=== PATIENT | male | born 1965 | race Caucasian/White ===

== ENCOUNTER → 2020-05-04 | Outpatient (CLI) | payer OTHER ==
--- NOTE | 2020-05-04 10:56 | 2DMMODE ---
[facility] [place] [address] 2 D/M-MODE ECHOCARDIOGRAM Name: CASSIDY,SHELDON NICOLE Room #: REG [facility] Artemio#: [id number] Admission: 05/04/20 Attend Phys: Physician not on staff Discharge: Date of : 67 Report #: [id number] THIS REPORT FOR: cc: Physician not on staff Physician not on staff Pascual Lord MD [facility] ~ APPROVED REPORT Study performed: 05/04/2020 09:56:55 EXAM: Comprehensive 2D, Doppler, and color-flow Echocardiogram Patient Location: Echo lab Room #: 2 Status: routine BSA: 2.04 HR: 78 bpm BP: 134/78 mmHg Rhythm: NSR Other Information Study Quality: Good Indications Hypertensive Disorder. 2D Dimensions RVDd: 37.66 mm IVSd: 10.40 (7-11mm) LVOT Diam: 23.07 (18-24mm) LVDd: 52.37 mm PWd: 6.86 (7-11mm) Ascending Ao: 33.25 (22-36mm) LVDs: 38.81 (25-40mm) Aortic Root: 39.75 mm Volumes Left Atrial Volume (Systole) Single Plane 4CH: 26.87 mL Single Plane 2CH: 53.72 mL LA ESV Index: 21.00 mL/m2 Aortic Valve AoV Peak Devin.: 1.32 m/s AO Peak Gr.: 6.93 mmHg LVOT Max P.96 mmHg LVOT Max V: 0.86 m/s VINAY Vmax: 2.73 cm2 [facility] [address] [place] [address] 2 D/M-MODE ECHOCARDIOGRAM Name: SHELDON BENJAMIN Room #: REG CL Evelina.#: [id number] Admission: 05/04/20 Attend Phys: Physician not on s Discharge: Date of : 67 Report #: [id number] Mitral Valve E/A Ratio: 0.8 MV Decel. Time: 323.24 ms MV E Max Devin.: 0.46 m/s MV A Devin.: 0.56 m/s MV PHT: 93.74 ms IVRT: 115.34 ms Pulmonary Valve PV Peak Devin.: 1.05 m/s PV Peak Gr.: 4.37 mmHg Pulmonary Vein P Vein S: 0.81 m/s P Vein A: 0.29 m/s P Vein D: 0.37 m/s P Vein A Dur.: 120.0 msec P Vein S/D Ratio: 2.19 Tricuspid Valve TR Peak Devin.: 2.13 m/s RAP Estimate: 5.00 mmHg TR Peak Gr.: 18.12 mmHg PA Pressure: 23.00 mmHg Left Ventricle The left ventricle is normal size. There is normal LV segmental wall motion. There is normal left ventricular wall thickness. The left ventricular systolic function is normal. LVEF is 50-55%. Mild diastolic dysfunction is present (impaired relaxation pattern). Right Ventricle The right ventricle is normal size. The right ventricular systolic function is normal. Atria The left atrium size is normal. The right atrium size is normal. Aortic Valve The aortic valve is normal in structure. Mild aortic regurgitation. There is no aortic valvular stenosis. Mitral Valve The mitral valve is normal in structure. There is no mitral valve regurgitation noted. No evidence of mitral valve stenosis. Tricuspid Valve The tricuspid valve is normal in structure. Trace tricuspid [facility] [address] [place] [place] [address] 2 D/M-MODE ECHOCARDIOGRAM Name: SHELDON BENJAMIN Room #: REG CL [facility]#: [id number] Admission: 05/04/20 Attend Phys: Physician not on s Discharge: Date of : 67 Report #: [id number] regurgitation. Estimated PAP 20-25mmHg. Pulmonic Valve The pulmonary valve is normal in structure. There is no pulmonic valvular regurgitation. Great Vessels Aortic root is dilated at 4.0cm. The ascending aorta is normal in size. IVC is normal in size and collapses >50% with inspiration. Pericardium There is no pericardial effusion. <Conclusion> Normal left ventricle size and wall thickness Ejection fraction 55% Grade 1 diastolic function Normal atrial size Normal right ventricular size and function Mild aortic valve insufficiency Trace of tricuspid valve insufficiency Pulmonary artery systolic pressure estimated at 25 mmHg Mild aortic root enlargement estimated at 4.0 cm No pericardial effusion <ELECTRONICALLY SIGNED> By: Pascual Lord MD, FACC 05/04/201054 [id number] Pascual Lord MD, FACC /INF
== END ==
LOC: CV 09:41
DX: I35.1 Nonrheumatic aortic (valve) insufficiency (principal); I10 Essential (primary) hypertension